=== PATIENT | female | born 2000 | race Caucasian/White ===

== ENCOUNTER 2024-12-02 17:29 | Emergency (ER) | payer OTHER, SELFPAY ==
--- OUTSIDE RECORDS SUMMARY | 2024-12-02 17:34 | XMS REPORT | Continuity of Care Document ---
Author Name Unknown Address [address] [place] [address] [facility] Address [address] [place] [address] Care Team Providers Care Nursing Technician Name Role Phone Endy Love Primary Care Physician + [phone] Brittany Nance RN Attending Clinician Unavailabl e GC_GCBZW_Kadiyala_S Attending Clinician Unavaila EMANUEL Forbes Attending Clinician Unavailable EbEmanuel Barba Attending Clinician [phone] Unknown, Attending Attending Clinician Unavailab Endy Machado Attending Clinician [phone] ENDY MCLAUGHLIN Attending Clinician Unavailable Nurse, Adc Fam Attending Clinician Unavailable YASMIN CRUZ Attending Clinician Unavailable BRENDA DELGADO Attending Clinician Unavailab BRENDA Saenz Attending Clinician Unavailab Tatiana Feldman MD Attending Clinician [phone] TATIANA DUNHAM Attending Clinician Unavailable Doctor Unassigned, [place] Attending Clinician U BRIANNE Figueredo Attending Clinician Unavailable Brianne Vaz MD Attending Clinician [phone] Avis Cotton Attending Clinician Raphael TERESAVictoria Attending Clinician GC_GCBZW_Kadiyala_S Admitting Clinician BRIANNE Gómez Admitting Clinician Unavailable Payers Payer Name Policy Type Policy Number Effective Date Expirati on Date Source [employer] - [employer] - [facility] [id number] [facility] [id number] 2020 00:00:00 [facility] [id number] [facility] [id number] 2015 00:00:00 Problems Condition Name Condition Details Condition Category Status Onset Date Resolution Date Last Treatment Date Treating Clinician Comments Source Pain in pelvis Pain in Pelvis Problem Active 12-24 00:00: 00 [facility] Excessive and frequent menstruati on Excessive and Frequent Menstruati on Problem Active 12-24 00:00: 00 [facility] No known active problems No known active problems Disease [facility] Allergies, Adverse Reactions, Alerts Allergy Name Allergy Type Status Severity Reaction(s) Onset Date Inactive Date Treating Clinician Comments Source NO KNOWN ALLERGIE S Drug Class Active [facility] Social History Social Habit Start Date Stop Date Quantity Comments Source [facility] Exposure to SARS-CoV-2 (event) 2023-02-09 00:00:00 2023-02-19 07:44:00 Not sure [facility] History of Social function 2022-12-12 00:00:00 2022-12-12 00:00:00 [facility] Tobacco use and exposure 2022-10-13 00:00:00 2022-10-13 00:00:00 Smokeless tobacco non-user [facility] Sex assigned at 2000 00:00:00 2000 00:00:00 [facility] Smoking Status Start Date Stop Date Source Never Smoker [facility] Tobacco smoking consumption unknown [facility] Medications Ordered Medication Name Filled Medication Name Start Date Stop Date Current Medication? Ordering Clinician Indication Dosage Frequency Signature (SIG) Comments Components Source fluconazole (DIFLUCAN) 150 mg tablet 2022-09 00:00: 00 07-29 05:59 :00 No [id number] 150mg Take 1 tablet by mouth every 72 (seventy-t wo) hours for 2 doses. [facility] One A Day Vitamin tablet 1 tablet every day by oral route. One A Day Vitamin tablet 1 tablet every day by oral route. 05-28 00:00: 00 No 1 Q1D One A Day Vitamin tablet 1 tablet every day by [facility] route. [facility]-ritonavir (PAXLOVID, EUA,) 300 mg (150 mg x 2)-100 mg tablet 02-20 00:00: 00 Yes [id number] 3{tbl} Take 3 tablets by mouth in the morning and 3 tablets in the evening. [facility] bromphenira mine-pseudo ephedrine-D M (BROMFED DM) 2-30-10 mg/5 mL syrup 02-19 00:00: 00 Yes [id number] 5mL Take 5 mL by mouth 4 (four) times daily as needed for Congestion /Allergies . [facility] methylPREDN ISolone (MEDROL, JENNA,) 4 mg tablets 02-19 00:00: 00 02-20 00:00 :00 No [id number] Take by mouth SEE-INSTRU CTIONS. follow package directions [facility] iopamidol (ISOVUE 370-500 mL) injection 80 mL - 03:00: 00 10-04 02:03 :00 No [id number] 80mL 80 mL, Intravenou s, ONCE, 1 dose, On Thu10/03/22 at 2100, Routine [facility] methylPREDN ISolone 4 mg tablets 10-03 00:00: 00 10-13 00:00 :00 No [id number] Take by mouth SEE-INSTRU CTIONS. follow package directions [facility] proMETHazin e (PHENERGAN) 25 mg in NaCl 0.9% (NS) 50 mL piggyback 05-13 22:15: 00 05-13 21:22 :00 No 25mg 25 mg, IV Piggyback, ONCE, 1 dose, 05/13/21 at 1715, 50 mL [facility] ondansetron (ZOFRAN (PF)) injection 4 mg 05-13 20:30: 00 05-13 19:33 :00 No 4mg 4 mg, Slow IV Push, ONCE, 1 dose, Thu05/13/21 at 1530, ESTUARDO [facility] NaCl 0.9% (NS) bolus infusion 1,000 mL 05-13 20:30: 00 05-13 21:21 :00 No 1000mL at 999 mL/hr, 1,000 mL, IV Piggyback, ONCE, 1 dose, Thu05/13/21 at 1530, STAT [facility] ondansetron (ZOFRAN ODT) 4 mg disintegrat ing tablet 05-13 00:00: 00 10-13 00:00 :00 No [id number] 4mg Take 1 tablet by mouth every 8 (eight) hours as needed for Nausea and Vomiting (N/V). [facility] proMETHazin e 25 mg tablet 05-13 00:00: 00 10-13 00:00 :00 No [id number] 25mg Take 1 tablet by mouth every 6 (six) hours as needed for Nausea and Vomiting (N/V). [facility] benzonatate 100 mg capsule 05-13 00:00: 00 10-13 00:00 :00 No [id number] 100mg Take 1 capsule by mouth 3 (three) times daily as needed for Cough. [facility] albuterol 90 mcg/actuati on inhaler 05-13 00:00: 00 10-13 00:00 :00 No [id number] 2{puff} Inhale 2 Puffs every 4 (four) hours as needed for Wheezing or Shortness of Breath. [facility] levofloxaci n 500 mg tablet TAKE 1 TABLET EVERY 24 HOURS BY ORAL ROUTE FOR 14 DAYS. levofloxaci n 500 mg tablet TAKE 1 TABLET EVERY 24 HOURS BY ORAL ROUTE FOR 14 DAYS. No levofloxac in 500 mg tablet TAKE 1 TABLET EVERY 24 HOURS BY ORAL ROUTE FOR 14 DAYS. [facility] metronidazo le 500 mg tablet TAKE 1 TABLET BY MOUTH EVERY 12 HOURS FOR 14 DAYS metronidazo le 500 mg tablet TAKE 1 TABLET BY MOUTH EVERY 12 HOURS FOR 14 DAYS No metronidaz ole 500 mg tablet TAKE 1 TABLET BY MOUTH EVERY 12 HOURS FOR 14 DAYS [facility] Immunizations Ordered Immunization Name Filled Immunization Name Date Status Comments Source HPV9 2023-03-03 00:00:00 Completed [facility] 2023-03-03 00:00:00 Completed [facility] 2022-12-12 00:00:00 Completed [facility] 2022-12-12 00:00:00 Completed [facility] 2022-12-12 00:00:00 Completed [facility] 2022-12-12 00:00:00 Completed [facility] 2022-12-12 00:00:00 Completed [facility] Flu Injectable MDCK Quadrivalent 2022-08-25 00:00:00 Completed [facility] Flu Injectable MDCK Quadrivalent 2022-08-25 00:00:00 Completed [facility] Flu Injectable MDCK Quadrivalent 2022-08-25 00:00:00 Completed [facility] Flu Injectable MDCK Quadrivalent 2022-08-25 00:00:00 Completed [facility] Flu Injectable MDCK Quadrivalent 2022-08-25 00:00:00 Completed SARS-COV-2 COVID-19 PFIZER VACCINE 2021-03-04 00:00:00 Completed [facility] SARS-COV-2 COVID-19 PFIZER VACCINE 2021-03-04 00:00:00 Completed [facility] SARS-COV-2 COVID-19 PFIZER VACCINE 2021-03-04 00:00:00 Completed [facility] SARS-COV-2 COVID-19 PFIZER VACCINE 2021-03-04 00:00:00 Completed [facility] SARS-COV-2 COVID-19 PFIZER VACCINE 2021-03-04 00:00:00 Completed [facility] SARS-COV-2 COVID-19 PFIZER VACCINE 2021-03-04 00:00:00 Completed SARS-COV-2 COVID-19 PFIZER VACCINE 2021-02-09 00:00:00 Completed [facility] SARS-COV-2 COVID-19 PFIZER VACCINE 2021-02-09 00:00:00 Completed [facility] SARS-COV-2 COVID-19 PFIZER VACCINE 2021-02-09 00:00:00 Completed [facility] SARS-COV-2 COVID-19 PFIZER VACCINE 2021-02-09 00:00:00 Completed [facility] SARS-COV-2 COVID-19 PFIZER VACCINE 2021-02-09 00:00:00 Completed [facility] SARS-COV-2 COVID-19 PFIZER VACCINE 2021-02-09 00:00:00 Completed [facility] TDAP 2021-01-15 00:00:00 Completed [facility] TDAP 2021-01-15 00:00:00 Completed [facility] TDAP 2021-01-15 00:00:00 Completed [facility] TDAP 2021-01-15 00:00:00 Completed [facility] TDAP 2021-01-15 00:00:00 Completed Influenza Virus Vaccine Quad IM, Preserv and ABX Free 6 MO-64 YRS 2020-12-26 00:00:00 Completed [facility] Influenza Virus Vaccine Quad IM, Preserv and ABX Free 6 MO-64 YRS 2020-12-26 00:00:00 Completed [facility] Influenza Virus Vaccine Quad IM, Preserv and ABX Free 6 MO-64 YRS 2020-12-26 00:00:00 Completed [facility] Influenza Virus Vaccine Quad IM, Preserv and ABX Free 6 MO-64 YRS 2020-12-26 00:00:00 Completed [facility] Influenza Virus Vaccine Quad IM, Preserv and ABX Free 6 MO-64 YRS (FLUCELVAX) 2020-12-26 00:00:00 Completed Influenza Virus Vaccine - Whole 2016-09-09 00:00:00 Completed [facility] Influenza Virus Vaccine - Whole 2016-09-09 00:00:00 Completed [facility] Influenza Virus Vaccine - Whole 2016-09-09 00:00:00 Completed [facility] Influenza Virus Vaccine - Whole 2016-09-09 00:00:00 Completed [facility] Influenza Virus Vaccine - Whole 2016-09-09 00:00:00 Completed Meningococcal Polysaccharide (groups A, C, Y and W-135) conjugate vaccine (MCV4P) 2015-09-10 00:00:00 Completed [facility] Meningococcal Polysaccharide (groups A, C, Y and W-135) conjugate vaccine (MCV4P) 2015-09-10 00:00:00 Completed [facility] Meningococcal Polysaccharide (groups A, C, Y and W-135) conjugate vaccine (MCV4P) 2015-09-10 00:00:00 Completed [facility] Meningococcal Polysaccharide (groups A, C, Y and W-135) conjugate vaccine (MCV4P) 2015-09-10 00:00:00 Completed [facility] Meningococcal Polysaccharide (groups A, C, Y and W-135) conjugate vaccine (MCV4P) 2015-09-10 00:00:00 Completed Influenza Virus Vaccine Nasal 2014-10-04 00:00:00 Completed [facility] Influenza Virus Vaccine Nasal 2014-10-04 00:00:00 Completed [facility] Influenza Virus Vaccine Nasal 2014-10-04 00:00:00 Completed [facility] Influenza Virus Vaccine Nasal 2014-10-04 00:00:00 Completed [facility] Influenza, Live, Trivalent, Intranasal (FLUMIST) 2014-10-04 00:00:00 Completed TDAP 2011-04-10 00:00:00 Completed [facility] Meningococcal Polysaccharide (groups A, C, Y and W-135) conjugate vaccine (MCV4P) 2011-04-10 00:00:00 Completed [facility] HEPATITIS A 2011-04-10 00:00:00 Completed [facility] TDAP 2011-04-10 00:00:00 Completed [facility] Meningococcal Polysaccharide (groups A, C, Y and W-135) conjugate vaccine (MCV4P) 2011-04-10 00:00:00 Completed [facility] HEPATITIS A 2011-04-10 00:00:00 Completed [facility] TDAP 2011-04-10 00:00:00 Completed [facility] Meningococcal Polysaccharide (groups A, C, Y and W-135) conjugate vaccine (MCV4P) 2011-04-10 00:00:00 Completed [facility] HEPATITIS A 2011-04-10 00:00:00 Completed [facility] TDAP 2011-04-10 00:00:00 Completed [facility] Meningococcal Polysaccharide (groups A, C, Y and W-135) conjugate vaccine (MCV4P) 2011-04-10 00:00:00 Completed [facility] HEPATITIS A 2011-04-10 00:00:00 Completed [facility] TDAP 2011-04-10 00:00:00 Completed Meningococcal Polysaccharide (groups A, C, Y and W-135) conjugate vaccine (MCV4P) 2011-04-10 00:00:00 Completed HEPATITIS A 2011-04-10 00:00:00 Completed IPV 2003-03-06 00:00:00 Completed [facility] MMR 2003-03-06 00:00:00 Completed [facility] DTaP, Unspecified Formulation 2003-03-06 00:00:00 Completed [facility] IPV 2003-03-06 00:00:00 Completed [facility] MMR 2003-03-06 00:00:00 Completed [facility] DTaP, Unspecified Formulation 2003-03-06 00:00:00 Completed [facility] IPV 2003-03-06 00:00:00 Completed [facility] MMR 2003-03-06 00:00:00 Completed [facility] DTaP, Unspecified Formulation 2003-03-06 00:00:00 Completed [facility] IPV 2003-03-06 00:00:00 Completed [facility] MMR 2003-03-06 00:00:00 Completed [facility] DTaP, Unspecified Formulation 2003-03-06 00:00:00 Completed [facility] IPV 2003-03-06 00:00:00 Completed MMR 2003-03-06 00:00:00 Completed DTaP, Unspecified Formulation 2003-03-06 00:00:00 Completed Varicella (varivax)(chicken pox) 2002-08-15 00:00:00 Completed [facility] IPV 2002-08-15 00:00:00 Completed [facility] MMR 2002-08-15 00:00:00 Completed [facility] HIB 4 Dose Schedule 2002-08-15 00:00:00 Completed [facility] Hep B, Adol or Pedi Dosage 2002-08-15 00:00:00 Completed [facility] DTaP, Unspecified Formulation 2002-08-15 00:00:00 Completed [facility] Varicella (varivax)(chicken pox) 2002-08-15 00:00:00 Completed [facility] IPV 2002-08-15 00:00:00 Completed [facility] MMR 2002-08-15 00:00:00 Completed [facility] HIB 4 Dose Schedule 2002-08-15 00:00:00 Completed [facility] Hep B, Adol or Pedi Dosage 2002-08-15 00:00:00 Completed [facility] DTaP, Unspecified Formulation 2002-08-15 00:00:00 Completed [facility] Varicella (varivax)(chicken pox) 2002-08-15 00:00:00 Completed [facility] IPV 2002-08-15 00:00:00 Completed [facility] MMR 2002-08-15 00:00:00 Completed [facility] HIB 4 Dose Schedule 2002-08-15 00:00:00 Completed [facility] Hep B, Adol or Pedi Dosage 2002-08-15 00:00:00 Completed [facility] DTaP, Unspecified Formulation 2002-08-15 00:00:00 Completed [facility] Varicella (varivax)(chicken pox) 2002-08-15 00:00:00 Completed [facility] IPV 2002-08-15 00:00:00 Completed [facility] MMR 2002-08-15 00:00:00 Completed [facility] HIB 4 Dose Schedule 2002-08-15 00:00:00 Completed [facility] Hep B, Adol or Pedi Dosage 2002-08-15 00:00:00 Completed [facility] DTaP, Unspecified Formulation 2002-08-15 00:00:00 Completed [facility] Varicella (varivax)(chicken pox) 2002-08-15 00:00:00 Completed IPV 2002-08-15 00:00:00 Completed MMR 2002-08-15 00:00:00 Completed HIB 4 Dose Schedule 2002-08-15 00:00:00 Completed Hep B, Adol or Pedi Dosage 2002-08-15 00:00:00 Completed DTaP, Unspecified Formulation 2002-08-15 00:00:00 Completed IPV 1999-04-12 00:00:00 Completed [facility] Hib-HbOC 1999-04-12 00:00:00 Completed [facility] DTaP, Unspecified Formulation 1999-04-12 00:00:00 Completed [facility] IPV 1999-04-12 00:00:00 Completed [facility] Hib-HbOC 1999-04-12 00:00:00 Completed [facility] DTaP, Unspecified Formulation 1999-04-12 00:00:00 Completed [facility] IPV 1999-04-12 00:00:00 Completed [facility] Hib-HbOC 1999-04-12 00:00:00 Completed [facility] DTaP, Unspecified Formulation 1999-04-12 00:00:00 Completed [facility] IPV 1999-04-12 00:00:00 Completed [facility] Hib-HbOC 1999-04-12 00:00:00 Completed [facility] DTaP, Unspecified Formulation 1999-04-12 00:00:00 Completed [facility] IPV 1999-04-12 00:00:00 Completed Hib-HbOC 1999-04-12 00:00:00 Completed DTaP, Unspecified Formulation 1999-04-12 00:00:00 Completed IPV 1999-02-13 00:00:00 Completed [facility] Hib-HbOC 1999-02-13 00:00:00 Completed [facility] Hep B, Adol or Pedi Dosage 1999-02-13 00:00:00 Completed [facility] DTaP, Unspecified Formulation 1999-02-13 00:00:00 Completed [facility] IPV 1999-02-13 00:00:00 Completed [facility] Hib-HbOC 1999-02-13 00:00:00 Completed [facility] Hep B, Adol or Pedi Dosage 1999-02-13 00:00:00 Completed [facility] DTaP, Unspecified Formulation 1999-02-13 00:00:00 Completed [facility] IPV 1999-02-13 00:00:00 Completed [facility] Hib-HbOC 1999-02-13 00:00:00 Completed [facility] Hep B, Adol or Pedi Dosage 1999-02-13 00:00:00 Completed [facility] DTaP, Unspecified Formulation 1999-02-13 00:00:00 Completed [facility] IPV 1999-02-13 00:00:00 Completed [facility] Hib-HbOC 1999-02-13 00:00:00 Completed [facility] Hep B, Adol or Pedi Dosage 1999-02-13 00:00:00 Completed [facility] DTaP, Unspecified Formulation 1999-02-13 00:00:00 Completed [facility] IPV 1999-02-13 00:00:00 Completed Hib-HbOC 1999-02-13 00:00:00 Completed Hep B, Adol or Pedi Dosage 1999-02-13 00:00:00 Completed DTaP, Unspecified Formulation 1999-02-13 00:00:00 Completed Hep B, Adol or Pedi Dosage 1998 00:00:00 Completed [facility] Hep B, Adol or Pedi Dosage 1998 00:00:00 Completed [facility] Hep B, Adol or Pedi Dosage 1998 00:00:00 Completed [facility] Hep B, Adol or Pedi Dosage 1998 00:00:00 Completed [facility] Hep B, Adol or Pedi Dosage 1998 00:00:00 Completed SARS-COV-2 COVID-19 PFIZER VACCINE Unknown Completed [facility] HPV9 Unknown Completed [facility] Varicella (varivax)(chicken pox) Unknown Completed [facility] TDAP Unknown Completed [facility] IPV Unknown Completed [facility] MMR Unknown Completed [facility] Meningococcal Polysaccharide (groups A, C, Y and W-135) conjugate vaccine (MCV4P) Unknown Completed [facility] Flu Injectable MDCK Quadrivalent Unknown Completed [facility] HIB 4 Dose Schedule Unknown Completed [facility] Hib-HbOC Unknown Completed [facility] Hep B, Adol or Pedi Dosage Unknown Completed [facility] HEPATITIS A Unknown Completed [facility] Influenza Virus Vaccine Nasal Unknown Completed [facility] Influenza Virus Vaccine - Whole Unknown Completed [facility] Influenza Virus Vaccine Quad IM, Preserv and ABX Free 6 MO-64 YRS (FLUCELVAX) Unknown Completed [facility] DTaP, Unspecified Formulation Unknown Completed [facility] HPV9 HPV9 Unknown [facility] Vital Name Observation Time Observation Value Comments Teetee lundberg BMI (Body Mass Index) 2023-11-10 00:00:00 27.7 kg/m2 [facility] BP Systolic 2023-11-10 00:00:00 114 mm[Hg] [facility] BP Diastolic 2023-11-10 00:00:00 62 mm[Hg] [facility] Height 2023-11-10 00:00:00 68.5 [in_i] [facility] Body Weight 2023-11-10 00:00:00 184.8 [lb_av] [facility] Systolic blood pressure 2023-07-24 15:25:00 138 mm[Hg] [facility] Diastolic blood pressure 2023-07-24 15:25:00 82 mm[Hg] [facility] Heart rate 2023-07-24 15:25:00 90 /min [facility] Body temperature 2023-07-24 15:25:00 36.89 [place] [facility] Respiratory rate 2023-07-24 15:25:00 16 /min [facility] Body height 2023-07-24 15:25:00 174 cm [facility] Body weight 2023-07-24 15:25:00 82.101 kg [facility] BMI 2023-07-24 15:25:00 27.12 kg/m2 [facility] Oxygen saturation in Arterial blood by Pulse oximetry 2023-07-24 15:25:00 98 /min [facility] Systolic blood pressure 2023-02-19 13:00:00 108 mm[Hg] [facility] Diastolic blood pressure 2023-02-19 13:00:00 74 mm[Hg] [facility] Heart rate 2023-02-19 13:00:00 113 /min [facility] Body temperature 2023-02-19 13:00:00 37.83 [place] [facility] Respiratory rate 2023-02-19 13:00:00 18 /min [facility] Body height 2023-02-19 13:00:00 172.7 [facility] weight 2023-02-19 13:00:00 78.744 kg [facility] BMI 2023-02-19 13:00:00 26.40 kg/m2 [facility] Oxygen saturation in Arterial blood by Pulse oximetry 2023-02-19 13:00:00 97 /min [facility] Systolic blood pressure 2022-10-13 20:42:00 108 mm[Hg] [facility] Diastolic blood pressure 2022-10-13 20:42:00 66 mm[Hg] [facility] Heart rate 2022-10-13 20:42:00 79 /min [facility] Body height 2022-10-13 20:42:00 174 cm [facility] Body weight 2022-10-13 20:42:00 80.377 kg [facility] BMI 2022-10-13 20:42:00 26.55 kg/m2 [facility] Oxygen saturation in Arterial blood by Pulse oximetry 2022-10-13 20:42:00 99 /min [facility] Body height 2022-10-04 00:59:00 172.7 cm [facility] Body weight 2022-10-04 00:59:00 79.788 kg [facility] BMI 2022-10-04 00:59:00 26.75 kg/m2 [facility] [facility] Oxygen saturation in Arterial blood by Pulse oximetry 2022-10-04 00:59:00 100 /min [facility] Systolic blood pressure 2022-10-04 00:59:00 129 mm[Hg] [facility] Diastolic blood pressure 2022-10-04 00:59:00 81 mm[Hg] [facility] Heart rate 2022-10-04 00:59:00 80 /min [facility] Body temperature 2022-10-04 00:59:00 37 [place] [facility] Respiratory rate 2022-10-04 00:59:00 16 /min [facility] Systolic blood pressure 2021-05-13 22:41:44 119 mm[Hg] [facility] Diastolic blood pressure 2021-05-13 22:41:44 68 mm[Hg] [facility] Heart rate 2021-05-13 22:41:44 91 /min [facility] Respiratory rate 2021-05-13 22:41:44 16 /min [facility] Oxygen saturation in Arterial blood by Pulse oximetry 2021-05-13 22:41:44 100 /min [facility] Body temperature 2021-05-13 18:59:00 37.39 [place] [facility] Body weight 2021-05-13 18:59:00 82.555 kg [facility] Procedures Procedure Date / Time Performed Performing Clinician Source Transvaginal Us Non-ob 2023-12-25 00:00:00 [facility] US, transvaginal 2023-12-25 00:00:00 [facility] US, transvaginal 2023-11-05 00:00:00 [facility] GARDASIL 9 (HPV 9V) VACCINE 2023-03-03 19:31:16 Endy Mclaughlin [facility] COVID-19 (MOLECULAR TESTING NUCLEIC ACID AMPLIFICATION) 2023-02-19 13:45:00 Endy Mclaughlin [facility] POCT GRP A STREP (MOLECULAR) 2023-02-19 13:00:00 Endy Mclaughlin [facility] POCT FLU A AND B (MOLECULAR) 2023-02-19 13:00:00 Endy Mclaughlin [facility] Extraction of Delevan Tooth 2023-01-19 00:00:00 [facility] GARDASIL 9 (HPV 9V) VACCINE 2022-12-12 21:50:33 Yasmin Cruz [facility] ASSIGNMENT OF BENEFITS 2022-10-13 20:39:00 Docto r Unassigned, [place] [facility] CT SOFT TISSUE NECK W CONTRAST 2022-10-04 02:06:13 Brianne Vaz [facility] POCT TEST 2022-10-04 01:25:00 Ebonie Vaz [facility] COMP. METABOLIC PANEL (70034) 2022-10-04 01:21:00 Brianne Vaz [facility] CBC WITH DIFF 2022-10-04 01:21:00 Brianne Vaz [facility] PROTHROMBIN TIME / INR 2022-10-04 01:21:00 Dario Vaz [facility] ACTIVATED PARTIAL THRMPLAS MAXWELL 2022-10-04 01:21:00 Brianne Vaz [facility] EBV-MONONUCLEOSIS SCREEN 2022-10-04 01:21:00 Brianne Vaz [facility] RAPID STREP SCREEN FOR GROUP A 2022-10-04 01:21:[address] [facility]ATMENT 2022-10-04 00:36:12 Doctor Unassigned, [place] [facility] QUANTIFERON-TB ASSAY 2022-08-27 20:30:00 Manuel Adams [facility] QFT TB2 MINUS NIL 2022-08-27 20:30:00 Ky longo [facility] POCT TEST 2021-05-13 19:56:00 Jessie Lim [facility] URINALYSIS 2021-05-13 19:55:00 Raphael [facility] XR CHEST 1 VW 2021-05-13 19:37:44 Victoria Lim [facility] LIPASE 2021-05-13 19:33:00 [facility] HE[facility] FUNCTION [facility] (75460) (ALB,T.PRO,BILI T,BU/BC,ALT,AST,ALK PHOS) 2021-05-13 19:33:[address] [facility] BASIC METABOLIC PANEL (NA, K, CL, CO2, GLUCOSE, BUN, CREATININE, CA) 2021-05-13 19:33:00 [facility] 2021-05-13 19:33:00 Victoria Lim [facility] COVID-19 (ID NOW RAPID TESTING) 2021-05-13 19:33:00 Lmi, [place] [facility] NOTICE OF PRIVACY PRACTICES 2021-05-13 18:48:49 Doctor Unassigned, [place] [facility] Encounters Start Date/Time End Date/Time Encounter Type Admission Type Attending [facility] Care Facility Care Department Encounter ID Source 2023-02-19 00:00:00 2024-11-05 02:41:02 Orders Only Brittany Nance Kelley L [facility] [id number] 350.1.13.10 4.2.7.2.686 [id number] [facility] 2024-01-01 00:00:00 2024-01-01 00:00:00 NESSA Wong: [address], [place] [phone] , Ph. GC_GCBZW_Ka diyala_S [facility] - GC_GCBZW_Harriet ren [place]* [id number] [facility] 2023-12-25 00:00:00 2023-12-25 00:00:00 Ellen Olvera MD: [address], [place] [phone] , Ph. GC_GCBZW_Ka diyala_S [facility] - GC_GCBZW_Harriet rne [place]* [id number] [facility] 2023-12-02 00:00:00 2023-12-02 00:00:00 Outpatient GC_GCBZW_Ka diyala_S [facility] [id number] [facility] 2023-11-10 00:00:00 2023-11-10 00:00:00 Outpatient GC_GCBZW_Ka diyala_S [facility] [id number] [facility] 2023-11-10 00:00:00 2023-11-10 00:00:00 NESSA Wong: [address], [address], [place] [phone] , Ph. [facility] - GC_GCBZW_Harriet [place]* [id number] [facility] 2023-11-05 00:00:00 2023-11-05 00:00:00 Outpatient GC_GCBZW_Ka diyala_S PRIV PRIV [id number] [facility] 2023-11-05 00:00:00 2023-11-05 00:00:00 Ellen Olvera MD: [address], [place] [address] , Ph. [facility] - GC_GCBZW_[place]riet [place]* [id number] [facility] 2023-11-02 00:00:00 2023-11-02 00:00:00 Outpatient GC_GCBZW_Ka diyala_S PRIV PRIV [id number] [facility] 2023-11-02 00:00:00 2023-11-02 00:00:00 NESSA Wong: [address], [place] [address] , Ph. [facility] - GC_GCBZW_Harriet [place]* [id number] [facility] 2023-08-27 00:00:00 2023-08-27 00:00:00 Outpatient GC_GCBZW_Ka diyala_S PRIV PRIV [id number] [facility] 2023-08-27 00:00:00 2023-08-27 00:00:00 Outpatient GC_GCBZW_Ka diyala_S PRIV PRIV [id number] [facility] 2023-08-06 00:00:00 2023-08-06 00:00:00 Outpatient GC_GCBZW_Ka diyala_S PRIV PRIV [id number] [facility] 2023-07-30 00:00:00 2023-07-30 00:00:00 Outpatient GC_GCBZW_Ka diyala_S PRIV PRIV [id number] [facility] 2023-07-25 00:00:00 2023-07-25 00:00:00 Outpatient GC_GCBZW_Ka diyala_S PRIV PRIV [id number] [facility] 2023-07-25 00:00:00 2023-07-25 00:00:00 Outpatient GC_GCBZW_Ka diyala_S PRIV PRIV [id number] [facility] 2023-07-24 10:20:00 2023-07-24 10:42:02 Outpatient R CORONAYAMILEMANUEL Gomez [facility] [id number] [facility] 2023-07-24 10:20:00 2023-07-24 10:40:00 Urgent Care Chilo Emanuel Unknown, Attending [facility] [id number] 350.1.13.10 4.2.7.2.686 [id number] [facility] 2023-07-22 00:00:00 2023-07-22 00:00:00 Outpatient GC_GCBZW_Ka diyala_S PRIV PRIV [id number] [facility] 2023-07-14 00:00:00 2023-07-14 00:00:00 Outpatient GC_GCBZW_Ka diyala_S PRIV PRIV [id number] [facility] 2023-03-06 00:00:00 2023-03-06 00:00:00 Telephone Arcadio Mclaughlinssica [facility] .2.840.114 350.1.13.10 4.2.7.2.686 [id number] [facility] 2023-03-03 09:40:00 2023-03-03 12:05:32 Outpatient R ARCADIO MCLAUGHLINSSICA [facility] [id number] [facility] 2023-03-03 09:40:00 2023-03-03 12:05:32 Nurse Visit Nurse, [facility] Monico Jamin [place] [id number] 350.1.13.10 4.2.7.2.686 [id number] [facility] 2023-02-19 08:30:00 2023-02-19 08:41:47 Outpatient R ENDY MCLAUGHLIN [facility] [id number] [facility] 2023-02-19 08:30:00 2023-02-19 08:41:47 [facility] 1.840.114 350.1.13.10 4.2.7.2.686 [id number] [facility] 2023-02-18 14:20:00 2023-02-18 14:20:00 Outpatient R [facility] [id number] [facility] 2023-02-11 14:20:00 2023-02-11 14:20:00 Outpatient R [facility] [id number] [facility] 2023-01-09 14:20:00 2023-01-09 14:20:00 Outpatient R JINACICIYASMIN ANNE [facility] [id number] [facility] 2022-12-12 10:00:00 2022-12-12 15:41:42 Outpatient R BRENDA DELGADO [facility] [id number] [facility] 2022-12-12 10:00:00 2022-12-12 15:41:42 Nurse Visit Nurse, Leslye Jimkaileeelena [facility] 1..840.114 350.1.13.10 4.2.7.2.686 [id number] [facility] 2022-10-13 14:45:00 2022-10-13 15:00:00 Office Visit Tatiana Dunham [facility] 1.840.114 350.1.13.10 4.2.7.2.686 [id number] [facility] 2022-10-13 14:45:00 2022-10-13 14:45:00 Outpatient TATIANA VELEZ SEPEHR [facility] [id number] [facility] 2022-10-13 00:00:00 2022-10-13 00:00:00 Orders Only Doctor Unassigned, [place] [facility] 1.2.840.114 350.1.13.10 4.2.7.2.686 [id number] [facility] 2022-10-03 19:02:00 2022-10-03 21:20:00 Emergency X BRIANNE VAZ [facility] ERT [id number] [facility] 2022-10-03 19:02:00 2022-10-03 21:20:00 Emergency Brianne Vaz [facility] 1.2.840.114 350.1.13.10 4.2.7.2.686 [id number] [facility] 2022-08-27 14:45:00 2022-08-27 23:59:00 Hospital Encounter JosQuentin volodymyr Avis [facility] 1.2.840.114 350.1.13.10 4.2.7.2.686 [id number] [facility] 2021-05-13 14:00:00 2021-05-13 17:43:00 Emergency Victoria Lim [facility] 1.2.840.114 350.1.13.10 4.2.7.2.686 [id number] [facility] 2021-05-13 13:49:00 2021-05-13 13:49:00 Emergency X [facility] ERT [id number] [facility] Results Test Description Test Time Test Comments Results Result Co mments Source [facility] [Units/volume] in Serum or Vulstn9722-40-80 00:00:00* Test Item Value Reference Range Interpretation Comme nts TSH (test code = TSH) 1.410 uIU/mL 0.178-4.530 [facility] MedicalChoriogonadotropin.beta subunit [Units/volume] in Serum or Plasma 2023-11-03 00:00:00* Test Item Value Reference Range Interpretation Comme nts HCG (test code = HCG) < 5 [facility], [id number] 09:40:48* Test Item Value Reference Range Interpretation Comme nts HCG (test code = HCG) [facility] 13:36:00* Test Item Value Reference Range Interpretation Comme nts POCT INFLUENZA A (test code = 3840) negative Negative - Negative POCT INFLUENZA B (test code = 3841) negative Negative - Negative Lab Interpretation (test cod e = 32266-3) Normal [facility] FLU A AND B (MOLECULAR)2023-02-19 13:36:00* Test Item Value Reference Range Interpretation Comme nts POCT INFLUENZA A (test code = 3840) negative Negative - Negative POCT INFLUENZA B (test code = 3841) negative Negative - Negative Lab Interpretation (test cod e = 45181-5) Normal [facility] FLU A AND B (MOLECULAR)2023-02-19 13:36:00* Test Item Value Reference Range Interpretation Comme nts POCT INFLUENZA A (test code = 3840) negative Negative - Negative POCT INFLUENZA B (test code = 3841) negative Negative - Negative Lab Interpretation (test cod e = 95591-7) Normal [facility] GRP A STREP (MOLECULAR)2023-02-19 13:34:00* Test Item Value Reference Range Interpretation Comme nts POCT GP A STREP (test code = 92835-1) negative Negative - Negative Lab Interpretation (test cod e = 37120-8) Normal [facility] GRP A STREP (MOLECULAR)2023-02-19 13:34:00* Test Item Value Reference Range Interpretation Comme nts POCT GP A STREP (test code = 40031-3) negative Negative - Negative Lab Interpretation (test cod e = 30316-5) Normal [facility] GRP A STREP (MOLECULAR)2023-02-19 13:34:00* Test Item Value Reference Range Interpretation Comme [facility] POCT GP A STREP (test code = 71533-5) negative Negative - Negative Lab Interpretation (test cod e = 12596-7) Normal [facility] [id number] 02:06:49* Test Item Value Reference Range Interpretation Comme [facility] EBV Mononucleosis Screen (te st code = 3955055811) Negative Negative Lab Interpretation (test cod e = 80292-1) Normal [facility] THRMPLAS [id number] 02:00:23* Test Item Value Reference Range Interpretation Comme [facility] APTT Patient (test code = 3173-2) See_Comment [Automated message] The system which generated this result transmitted reference range: 23 - 38 Seconds. The reference range was not used to interpret this result as normal/abnormal. OTF (test code = OTF) The [facility] patient population mean normal value for aPTT is 30 seconds. Lab Interpretation (test code = 58416-7) Normal [facility] Children[facility] TIME / [id number] 01:58:16* Test Item Value Reference Range Interpretation Comme [facility] PROTIME PATIENT (test code = 5964-2) See_Comment [Automated messa ge] The system which generated this result transmitted reference range: 12.0 - 14.7 Seconds. The reference range was not used to interpret this result as normal/abnormal. INR (test code = 6301-6) Normal INR <1.1; Warfarin Therapeutic range 2.0 to 3.0 or 2.5 to 3.5, depending upon the indications. Lab Interpretation (test code = 17682-4) Normal [facility] METABOLIC PANEL (18255)2022-10-04 01:55:40* Test Item Value Reference Range Interpretation Comme [facility] NA (test code = 1055977850) 138 mmol/L 135-145 K (test code = 0306239883) 4.0 mmol/L 3.5-5.0 CL (test code = 6383321655) 103 mmol/L 98-108 CO2 TOTAL (test code = 4504284199) 28 mmol/L 23-31 AGAP (test code = 2772769572) 2-16 BUN (test code = 5072118995) 14 mg/dL 7-23 GLUCOSE (test code = 2731627442) 95 mg/dL 70-110 CREATININE (test code = 0576632839) 0.76 mg/dL 0.50-1.04 TOTAL BILI (test code = 9246403537) 0.3 mg/dL 0.1-1.1 CALCIUM (test code = 0149810252) 9.0 mg/dL 8.6-10.6 T PROTEIN (test code = 8551286612) 7.6 g/dL 6.3-8.2 ALBUMIN (test code = 1647611277) 4.6 g/dL 3.5-5.0 ALK PHOS (test code = 9568051697) 72 U/L 34-122 ALTv (test code = 1742-6) 61 U/L 5-35 H AST(SGOT) (test code = 8962446944) 53 U/L 13-40 H eGFR (test code = 1050117912) mL/min/1.73m2 OTF (test code = OTF) Association of Glomerular Filtration Rate (GFR) and Staging of Kidney Disease* + --+ --+ ------+| GFR (mL/min/1.73 m2) ?| With Kidney Damage ?| ?Without Kidney Damage+ --------+ --------+ +| ?>90 ?| ?Stage one ?| ? Normal ?+ ---+ ---+ -------+| ?60-89 ?| ?Stage two ?| ? Decreased GFR ? + --+ --+ ------+| ?30-59 ?| ?Stage three ?| ? Stage three ? + --+ --+ ------+| ?15-29 ?| ?Stage four ? | ? Stage four ?+ ---+ ---+ -------+| ?<15 (or dialysis) ? ?| ?Stage five ? | ? Stage five ?+ ---+ ---+ -------+ *Each stage assumes the associated GFR level has been in effect for at least three months. ?Stages 1 to 5, with or without kidney disease, indicate chronic kidney disease. Notes: Determination of stages one and two (with eGFR >59mL/min/1.73 m2) requires estimation of kidney damage for at least three months as defined by structural or functional abnormalities of the kidney, manifested by either:Pathological abnormalities or Markers of kidney damage (including abnormalities in the composition of the blood or urine or abnormalities in imaging tests). Lab Interpretation (test code = 30723-0) Abnormal [facility] WITH [id number] 01:49:38* Test Item Value Reference Range Interpretation Comme nts WBC (test code = 6690-2) See_Comment [Automated messa ge] The system which generated this result transmitted reference range: 4.30 - 11.10 10*3/?L. The reference range was not used to interpret this result as normal/abnormal. RBC (test code = 789-8) See_Comment [Automated messa ge] The system which generated this result transmitted reference range: 3.93 - 5.25 10*6/?L. The reference range was not used to interpret this result as normal/abnormal. HGB (test code = 718-7) 11.7 g/dL 11.6-15.0 HCT (test code = 4544-3) 37.3 % 35.7-45.2 MCV (test code = 787-2) 80.4 fL 80.6-95.5 L MCH (test code = 785-6) 25.2 pg 25.9-32.8 L MCHC (test code = 786-4) 31.4 g/dL 31.6-35.1 L RDW-SD (test code = 88359-2) 37.5 fL 39.0-49.9 L RDW-CV (test code = 788-0) 13.0 % 12.0-15.5 PLT (test code = 777-3) See_Comment [Automated messa ge] The system which generated this result transmitted reference range: 166 - 358 10*3/?L. The reference range was not used to interpret this result as normal/abnormal. MPV (test code = 82045-0) 11.1 fL 9.5-12.9 NRBC/100 WBC (test code = 3455941085) See_Comment [Automated Medikly ssage] The system which generated this result transmitted reference range: 0.0 - 10.0 /100 WBCs. The reference range was not used to interpret this result as normal/abnormal. NRBC x10^3 (test code = 1279810818) See_Comment [Automated messa ge] The system which generated this result transmitted reference range: 10*3/?L. The reference range was not used to interpret this result as normal/abnormal. GRAN MAT (NEUT) % (test code = 770-8) 48.7 % IMM GRAN % (test code = 8159348562) 0.20 % LYMPH % (test code = 736-9) 42.9 % MONO % (test code = 5905-5) 6.7 % EOS % (test code = 713-8) 1.1 % BASO % (test code = 706-2) 0.4 % GRAN MAT x10^3(ANC) (test code = 6646880509) 4.11 10*3/uL 1.88-7.09 IMM GRAN x10^3 (test code = 2586330740) 0.00-0.06 LYMPH x10^3 (test code = 731-0) 3.61 10*3/uL 1.32-3.29 H MONO x10^3 (test code = 742-7) 0.56 10*3/uL 0.33-0.92 EOS x10^3 (test code = 711-2) 0.09 10*3/uL 0.03-0.39 BASO x10^3 (test code = 704-7) 0.03 10*3/uL 0.01-0.07 Lab Interpretation (test code = 04363-8) Abnormal [facility] [id number] 01:25:00* Test Item Value Reference Range Interpretation Comme nts POCT PREG (test code = 1605) negative Lab Interpretation (test cod e = 68052-0) Normal [facility]2021-08-23 20:15:19* Test Item Value Reference Range Interpretation Comme nts APPEARANCE (test code = 1006855233) Hazy Clear A COLOR (test code = 9284240683) Yellow Yellow PH (test code = 4315599043) 4.8-8.0 SP GRAVITY (test code = 0226984488) 1.003-1.030 GLU U QUAL (test code = 3444454139) Normal Normal BLOOD (test code = 1401918675) Negative Negative KETONES (test code = 4432358094) Negative Negative PROTEIN (test code = 2887-8) Negative Negative UROBILIN (test code = 4977405936) Normal Normal BILIRUBIN (test code = 6013403148) Negative Negative NITRITE (test code = 5932326485) Negative Negative LEUK HAROON (test code = 6932796302) Negative Negative RBC/HPF (test code = 0884642253) See_Comment [Automated messa ge] The system which generated this result transmitted reference range: 0 - 3 HPF. The reference range was not used to interpret this result as normal/abnormal. WBC/HPF (test code = 3492895796) See_Comment [Automated messa ge] The system which generated this result transmitted reference range: 0 - 5 HPF. The reference range was not used to interpret this result as normal/abnormal. BACTERIA (test code = 8158423753) Negative Negative MUCOUS (test code = 3779787431) Marked Negative LPF A SQ EPITH (test code = 2186185287) HPF HYAL CAST (test code = 5269675206) See_Comment H [Automated messa ge] The system which generated this result transmitted reference range: <=2 LPF. The reference range was not used to interpret this result as normal/abnormal. Lab Interpretation (test code = 77024-5) Abnormal [facility] (ID NOW RAPID TESTING)2021-05-13 20:02:28* Test Item Value Reference Range Interpretation Comme nts SARS-CoV-2 Rapid ID NOW (test code = 72075-2) Positive Not Detected A OTF (test code = OTF) ID NOW COVID-19 As say is an isothermal nucleic acid amplification test intended for the qualitative detection of nucleic acid from SARS-CoV-2 viral RNA in nasopharyngeal (MACHINE STAPLER) specimens. It is used under Emergency Use Authorization (EUA) by FDA. The limit of detection (LOD) of the assay is 125 Genome Equivalents/mL. A positive result is indicative of the presence of SARS-CoV-2 RNA. ?Clinical correlation with patient history and other diagnostic information is necessary to determine patient infection status. A negative (Not Detected) result does not preclude SARS-CoV-2 infection. In patients with clinical symptoms and other tests that are consistent with SARS-CoV-2 infection, negative results should be treated as presumptive negative and a new specimen should be tested with alternative PCR molecular test. Invalid: Please collect a new specimen for repeat patient testing if clinically indicated. Lab Interpretation (test code = 88681-6) Abnormal [facility] (NA, K, CL, CO2, GLUCOSE, BUN, CREATININE, CA)2021-05-13 19:58:46* Test Item Value Reference Range Interpretation Comme nts NA (test code = 4552819607) 138 mmol/L 135-145 K (test code = 7543109086) 3.4 mmol/L 3.5-5.0 L CL (test code = 0203081301) 104 mmol/L 98-108 CO2 TOTAL (test code = 4414822204) 23 mmol/L 23-31 AGAP (test code = 4917567686) 2-16 BUN (test code = 7021473720) 12 mg/dL 7-23 GLUCOSE (test code = 9527725177) 120 mg/dL 70-110 H CREATININE (test code = 1180688805) 0.65 mg/dL 0.50-1.04 CALCIUM (test code = 0152203860) 9.6 mg/dL 8.6-10.6 eGFR (test code = 3582247392) mL/min/1.73m2 OTF (test code = OTF) Association of Glomerular Filtration Rate (GFR) and Staging of Kidney Disease* + --+ --+ ------+| GFR (mL/min/1.73 m2) ?| With Kidney Damage ?| ?Without Kidney Damage+ --------+ --------+ +| ?>90 ?| ?Stage one ?| ? Normal ?+ ---+ ---+ -------+| ?60-89 ?| ?Stage two ?| ? Decreased GFR ? + --+ --+ ------+| ?30-59 ?| ?Stage three ?| ? Stage three ? + --+ --+ ------+| ?15-29 ?| ?Stage four ? | ? Stage four ?+ ---+ ---+ -------+| ?<15 (or dialysis) ? ?| ?Stage five ? | ? Stage five ?+ ---+ ---+ -------+ *Each stage assumes the associated GFR level has been in effect for at least three months. ?Stages 1 to 5, with or without kidney disease, indicate chronic kidney disease. Notes: Determination of stages one and two (with eGFR >59mL/min/1.73 m2) requires estimation of kidney damage for at least three months as defined by structural or functional abnormalities of the kidney, manifested by either:Pathological abnormalities or Markers of kidney damage (including abnormalities in the composition of the blood or urine or abnormalities in imaging tests). Lab Interpretation (test code = 80668-0) Abnormal [facility] PAN[facility] (53544) (ALB,T.PRO,BILI T,BU/BC,ALT,AST,ALK PHOS)2021-05-13 19:58:46* Test Item Value Reference Range Interpretation Comme nts TOTAL BILI (test code = 2429917074) 0.4 mg/dL 0.1-1.1 BILI UNCON (test code = 8607357342) 0.3 mg/dL 0.1-1.1 BILI CONJ (test code = 8946088068) 0.0 mg/dL 0.0-0.3 T PROTEIN (test code = 7037509768) 8.2 g/dL 6.3-8.2 ALBUMIN (test code = 2866741642) 4.7 g/dL 3.5-5.0 ALK PHOS (test code = 9137549328) 75 U/L 34-122 ALTv (test code = 1742-6) 17 U/L 5-35 AST(SGOT) (test code = [id number]) 23 U/L 13-40 Lab Interpretation (test cod e = 21930-9) [facility]58:30* Test Item Value Reference Range Interpretation Comme nts LIPASE (test code = 6240645082) 60 U/L 0-220 Lab Interpretation (test cod e = 81665-8) [facility] [id number] 19:56:00* Test Item Value Reference Range Interpretation Comme nts POCT PREG (test code = 1605) negative On board controls acceptable with C Line (test code = 3574) present Lab Interpretation (test cod e = 37537-1) [facility] 1 [id number] 19:54:25Findings that may be seen with bronchial hyperreactivity-nonspecificbronchitis. Otherwise no signs of acute cardiopulmonary process. Mary Schmid MD., have reviewed this study and agree with theabove report.EXAM: XR CHEST 1 VW COMPARISON: None. HISTORY: 20-year-old female with COVID-19 infection. FINDINGS: Lungs: Relatively large lung volumes. Mild peribronchial cuffing. Nodefinite foc al opacities. Heart/Mediastinum: The cardiac silhouette appears normal accounting fortechnique. Bones and soft tissues: No focal osseous lesions or acute osseous findingsare detected. [facility], Radiant Results Inft User - 05/13/2021 2:55 PM CDT EXAM: XR CHEST 1 VWCOMPARISON: None.HISTORY: 20-year-old female with COVID-19 infection.FINDINGS:Lungs: Relatively large lung volumes. Mild peribronchial cuffing. Nodefinite focal opacities.Heart/Mediastinum: The cardiac silhouette appears normal accounting fortechnique.Bones and soft tissues: No focal osseous lesions or acute osseous findingsare detected.IMPRESSIONFindings that may be seen withbronchial hyperreactivity-nonspecificbronchitis. Otherwise no signs of acute cardiopulmonary process.IMary MD., have reviewed this study and agree with theabove report.[facility] WITH [id number] 19:49:47* Test Item Value Reference Range Interpretation Comme nts WBC (test code = 6690-2) See_Comment [Automated [employer]] The system which generated this result transmitted reference range: 4.30 - 11.10 10*3/?L. The reference range was not used to interpret this result as normal/abnormal. RBC (test code = 789-8) See_Comment [Automated [employer]] The system which generated this result transmitted reference range: 3.93 - 5.25 10*6/?L. The reference range was not used to interpret this result as normal/abnormal. HGB (test code = 718-7) 12.1 g/dL 11.6-15.0 HCT (test code = 4544-3) 38.2 % 35.7-45.2 MCV (test code = 787-2) 79.7 fL 80.6-95.5 L MCH (test code = 785-6) 25.3 pg 25.9-32.8 L MCHC (test code = 786-4) 31.7 g/dL 31.6-35.1 RDW-SD (test code = 54615-6) 38.8 fL 39.0-49.9 L RDW-CV (test code = 788-0) 13.3 % 12.0-15.5 PLT (test code = 777-3) See_Comment [Automated [employer] ge] The system which generated this result transmitted reference range: 166 - 358 10*3/?L. The reference range was not used to interpret this result as normal/abnormal. MPV (test code = 85546-4) 10.6 fL 9.5-12.9 NRBC/100 WBC (test code = 3253419764) See_Comment [Automated [employer]] The system which generated this result transmitted reference range: 0.0 - 10.0 /100 WBCs. The reference range was not used to interpret this result as normal/abnormal. NRBC x10^3 (test code = 7540453078) <0.01 See_Comment [Automated [employer] ge] The system which generated this result transmitted reference range: 10*3/?L. The reference range was not used to interpret this result as normal/abnormal. GRAN MAT (NEUT) % (test code = 770-8) 78.2 % IMM GRAN % (test code = 5777951900) 0.30 % LYMPH % (test code = 736-9) 17.4 % MONO % (test code = 5905-5) 3.9 % EOS % (test code = 713-8) 0.1 % BASO % (test code = 706-2) 0.1 % GRAN MAT x10^3(ANC) (test code = 7108778311) 6.09 10*3/uL 1.88-7.09 IMM GRAN x10^3 (test code = 4323862417) <0.03 0.00-0.06 LYMPH x10^3 (test code = 731-0) 1.35 10*3/uL 1.32-3.29 MONO x10^3 (test code = 742-7) 0.30 10*3/uL 0.33-0.92 L EOS x10^3 (test code = 711-2) <0.03 0.03-0.39 L BASO x10^3 (test code = 704-7) <0.03 0.01-0.07 Lab Interpretation (test code = 37350-5) Abnormal [facility]"
[2024-12-02 18:07] LABS: Absolute Eosinophils 0.1 K/uL (0-0.5); Absolute Lymphocytes (CBC) 2.8 K/uL (0.7-4.9); Absolute Monocytes 0.6 K/uL (0.1-1.3); Absolute Neutrophil 4.6 K/uL (1.8-8.0); Basophils % 0.3 % (0-1.3); Eosinophils % 0.7 % (0-4.4); Hematocrit 35.7 % (36.0-45.0); Hemoglobin 11.8 g/dL (12.0-15.0); Lymphocytes % 34.6 % (15.3-44.8); MCH 26.5 pg (27.0-35.0); MCV 80.4 fL (80-100); MPV 8.6 fL (7.6-11.3); Monocytes % 6.9 % (3.3-12.3); Neutrophils % 57.5 % (41.7-73.7); Platelets 234 thou/uL (152-406); RBC Red Blood Cell Count 4.44 M/uL (3.86-4.86); Red Cell Distribution Width 13.6 % (12.1-15.2); Specific Gravity > 1.030 (1.005-1.030)
[2024-12-02 18:21] LABS: Anion Gap 7.7 mEq/L (5.0-15.0); Potassium 3.7 mEq/L (3.5-5.1)
[2024-12-02] MEDS ORDERED: NA CHLORIDE 0.9% 1,000 ML ONE (19:26)
[2024-12-02] MEDS ORDERED: ACETAMINOPHEN 500 MG TAB ONE (19:26)
--- NOTE | 2024-12-02 20:40 | RAD REPORT ---
EXAMINATION: US Transvaginal OB COMPARISON: None. HISTORY: ABD PAIN TECHNIQUE: Real-time ultrasound was performed through the pelvis. A transvaginal scan was performed t o better visualize the intrauterine contents and adnexa. FINDINGS: LMP: 10/31/2024 There is a single intrauterine with a small gestational sac measuring 2.5 mm in mean diamet er, corresponding to sonographic age of 4 weeks, 6 days. No pole or cardiac pulsations identified. Small crescentic subchorionic hemorrhage posteriorly measuring 2.5 mm in thickness. Both ovaries are visualized and appear unremarkable, with a dominant 1.6 cm cystic lesion within the left ovary, may represent a corpus luteum. There is no free fluid in the cul-de-sac. IMPRESSION: Single intrauterine , with a composite sonographic age of 4 weeks, 6 days based on gestation al sac mean diameter. No pole or cardiac pulsations identified, which could be related to very early gestational age. Short-term follow-up ultrasound and beta hCG trending are recommended to establish viability..
--- NOTE | 2024-12-02 20:46 | ER ---
Nurse's Notes [facility] Name: Glory Gomes Age: 24 yrs Sex: Female : 2000 Arrival Date: 12/02/2024 Time: 17:29 Bed 14 Private MD: Diagnosis: Lower abdominal pain, unspecified;Other specified related conditions, first trimester Presentation: 12/02 17:43 Chief complaint: Patient states: First - recently missed period. Believes to ld1 be 4 weeks . C/O lower ABD cramping, no bleeding. Coronavirus screen: At this time, the client does not indicate any symptoms associated with coronavirus-19. Ebola Screen: No symptoms or risks identified at this time. Initial Sepsis Screen: Does the patient meet any 2 criteria? No. Patient's initial sepsis screen is negative. Does the patient have a suspected source of infection? No. Patient's initial sepsis screen is negative. Risk Assessment: Do you want to hurt yourself or someone else? Patient reports no desire to harm self or others. Onset of symptoms was December 02, 2024. 17:43 Method Of Arrival: Ambulatory ld1 17:43 Acuity: KATHY 3 ld1 Triage Assessment: 17:43 General: Appears in no apparent distress. comfortable, Behavior is calm, cooperative, ld1 appropriate for age. Pain: Complains of pain in suprapubic area, right lower quadrant and left lower quadrant Pain does not radiate. Pain currently is 7 out of 10 on a pain scale. Quality of pain is described as throbbing, Pain began suddenly, Is continuous. EENT: No signs and/or symptoms were reported regarding the EENT system. Neuro: Level of Consciousness is awake, alert, obeys commands, Oriented to person, place, time, situation. Cardiovascular: Capillary refill < 3 seconds Patient's skin is warm and dry. Respiratory: Airway is patent Respiratory effort is even, unlabored. GI: Abdomen is round non-distended, Reports lower abdominal pain. : No signs and/or symptoms were reported regarding the genitourinary system. Derm: No signs and/or symptoms reported regarding the dermatologic system. Musculoskeletal: No signs and/or symptoms reported regarding the musculoskeletal system. 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 - Infectious Disease History:: Denies. - Social history:: Smoking status: Patient denies any tobacco usage or history of. Screenin:03 [facility] ED Fall Risk Assessment (Adult) History of falling in the last 3 months, kj2 including since admission No falls in past 3 months (0 pts) Confusion or Disorientation No (0 pts) Intoxicated or Sedated No (0 pts) Impaired Gait No (0 pts) Mobility Assist Device Used No (0 pt) Altered Elimination No (0 pt) Score/Fall Risk Level 0 - 2 = Low Risk Maintained a safe environment, Hourly rounding (assess needs \T\ fall precautionary measures) done. Abuse screen: Denies threats or abuse. Denies injuries from another. Nutritional screening: No deficits noted. Tuberculosis screening: No symptoms or risk factors identified. Assessment: 19:01 General: Appears in no apparent distress. Behavior is calm, cooperative. Pain: kj2 Complains of pain in abdomen and left lower quadrant and right lower quadrant and suprapubic area Pain currently is 4 out of 10 on a pain scale. Neuro: Level of Consciousness is awake, alert, obeys commands, Oriented to person, place, time, situation. Cardiovascular: Patient's skin is warm and dry. Respiratory: Airway is patent Respiratory effort is even, unlabored. : No signs and/or symptoms were reported regarding the genitourinary system. 20:02 Reassessment: Patient appears in no apparent distress at this time. Patient and/or kj2 family updated on plan of care and expected duration. Pain level reassessed. Patient is alert, oriented x 3, equal unlabored respirations, skin warm/dry/pink. 21:22 GI: Bowel sounds present X 4 quads. Abd is non tender X 4 quads. kj2 21:23 Reassessment: Patient appears in no apparent distress at this time. Patient and/or kj2 family updated on plan of care and expected duration. Pain level reassessed. Patient is alert, oriented x 3, equal unlabored respirations, skin warm/dry/pink. Vital Signs: 17:43 BP 129 / 70; Pulse 88; Resp 18; Temp 98.2(TE); Pulse Ox 99% on R/A; Weight 79.83 kg; ld1 Height 5 ft. 8 in. ; Pain 6/10; 19:01 BP 123 / 66; Pulse 86; Resp 20; Pulse Ox 100% on R/A; kj2 20:02 BP 119 / 69; Pulse 86; Resp 20; Pulse Ox 100% ; kj2 21:23 BP 121 / 68; Pulse 80; Resp 18; Temp 98; Pulse Ox 100% on R/A; kj2 17:43 Body Mass Index 26.76 (79.83 kg, 172.72 cm) ld1 17:43 Pain Scale: Adult ld1 ED Course: 17:31 Patient arrived in ED. mr 17:32 Mike Santana PA is PHCP. cp 17:32 Juan Brannon MD is Attending Physician. cp 17:43 Arm band placed on right wrist. ld1 17:44 Triage completed. ld1 18:02 Abo/rh Typing Sent. kb4 18:02 Test, Urine Sent. kb4 18:02 CBC with Diff Sent. kb4 18:02 Basic Metabolic Panel Sent. kb4 18:02 Initial lab(s) drawn, by mn, sent to lab. Inserted saline lock: 20 gauge in right kb4 antecubital area, using aseptic technique. Blood collected. Flushed with 10 mL NS. 18:38 Roberat Duran, RN is Primary Nurse. ld1 18:56 Fatoumata Gonzalez, RN is Primary Nurse. kj2 19:03 Patient has correct armband on for positive identification. Provided Education on: call kj2 light. 19:04 No provider procedures requiring assistance completed. kj2 20:01 US Transvaginal Ob In Process Unspecified. EDMS 21:22 IV discontinued, intact, bleeding controlled, No redness/swelling at site. Pressure kj2 dressing applied. Administered Medications: 19:31 Drug: Acetaminophen PO 1000 mg PO once Route: PO; kj2 21:23 Follow up: Response: No adverse reaction kj2 19:32 Drug: NS 0.9% IV 1000 ml IV at 1000 ml once; to be given as a bolus over 60 minutes kj2 Route: IV; Rate: 1000 ml; Site: right antecubital; 21:23 Follow up: IV Status: Completed infusion; IV Intake: 1000ml kj2 Medication: 19:03 VIS not applicable for this client. kj2 Intake: 21:23 IV: 1000ml; Total: 1000ml. kj2 Outcome: 20:45 Discharge ordered by . cp 21:22 Discharged to home ambulatory, kj2 21:22 Condition: stable 21:22 Discharge instructions given to patient, family, Instructed on discharge instructions, follow up and referral plans. Demonstrated understanding of instructions, follow-up care, 21:36 Patient left the ED. kj2 Signatures: Dispatcher [employer] EDMS Kita Mcgee, Reg Reg mr Mike Santana, NESSA PA Roberta Cerda RN RN ld1 Fatoumata Gonzalez RN RN kj2 Moraima Karimi kb4
--- NOTE | 2024-12-02 20:46 | EDPHYS ---
Physician Documentation [facility] Name: Glory Gomes Age: 24 yrs Sex: Female : 2000 Arrival Date: 12/02/2024 Time: 17:29 Bed 14 Private MD: ED Physician Juan Brannon HPI: 12/02 18:00 This 24 yrs old Female presents to ER via Ambulatory with complaints of , cp Abdominal Pain. 18:00 The patient presents to the emergency department with abdominal pain, of the right cp lower quadrant, that started today, described as crampy. The estimated gestational age is 4 weeks. Previous pregnancies: the patient has never been . Associated signs and symptoms: Pertinent negatives: diarrhea, dysuria, fever, ruptured membranes, vaginal discharge, vomiting, vaginal bleeding. 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 - Infectious Disease History:: Denies. - Social history:: Smoking status: Patient denies any tobacco usage or history of. ROS: 18:05 Abdomen/GI: Positive for abdominal pain, of the right lower abdomen and adnexal, cp Negative for vomiting, diarrhea, constipation, 18:05 Constitutional: Negative for body aches, chills, fever, poor PO intake, cp 18:05 Respiratory: Negative for cough, shortness of breath, wheezing, 18:05 : Negative for urinary symptoms, hematuria, vaginal bleeding, vaginal discharge, 18:05 All other systems are negative, cp Exam: 18:10 Constitutional: The patient appears in no acute distress, alert, awake, comfortable, cp non-toxic, well developed, well nourished, 18:10 Head/Face: Normocephalic, atraumatic. cp 18:10 Eyes: Periorbital structures: appear normal, Conjunctiva: normal, no exudate, no injection, Lids and lashes: appear normal, bilaterally, 18:10 ENT: External ear(s): are unremarkable, Nose: is normal, Mouth: Lips: moist, Oral mucosa: moist, Posterior pharynx: Airway: no evidence of obstruction, patent, 18:10 Chest/axilla: Inspection: normal, 18:10 Cardiovascular: Rate: normal, Rhythm: regular, 18:10 Respiratory: the patient does not display signs of respiratory distress, Respirations: normal, no use of accessory muscles, no retractions, labored breathing, is not present, Breath sounds: are clear throughout, no decreased breath sounds, no stridor, no wheezing, 18:10 Abdomen/GI: Inspection: abdomen appears normal, Palpation: soft, in all quadrants, mild abdominal tenderness, in the right lower quadrant, Vital Signs: 17:43 BP 129 / 70; Pulse 88; Resp 18; Temp 98.2(TE); Pulse Ox 99% on R/A; Weight 79.83 kg; ld1 Height 5 ft. 8 in. ; Pain 6/10; 19:01 BP 123 / 66; Pulse 86; Resp 20; Pulse Ox 100% on R/A; kj2 20:02 BP 119 / 69; Pulse 86; Resp 20; Pulse Ox 100% ; kj2 21:23 BP 121 / 68; Pulse 80; Resp 18; Temp 98; Pulse Ox 100% on R/A; kj2 17:43 Body Mass Index 26.76 (79.83 kg, 172.72 cm) ld1 17:43 Pain Scale: Adult ld1 MDM: 17:56 Medical Screening Exam initiated cp 19:00 Differential diagnosis: STD, ectopic . cp 20:45 Data reviewed: vital signs, nurses notes, lab test result(s), radiologic studies, ultrasound, and as a result, I will discharge patient. 12/02 17:48 Order name: Abo/rh Typing; Complete Time: 19:33 [facility] 12/02 17:48 Order name: Basic Metabolic Panel; Complete Time: 19:33 [facility] 12/02 19:33 Interpretation: Normal except: CL 108; GFR 87. 12/02 17:48 Order name: CBC with Diff; Complete Time: 18:16 [facility] 12/02 19:33 Interpretation: Normal except: HGB 11.8; HCT 35.7; MCH 26.5. 12/02 17:48 Order name: Test, Urine; Complete Time: 18:16 [facility] 12/02 20:33 Interpretation: Reviewed. cp 12/02 18:17 Order name: Quantitative Hcg; Complete Time: 19:33 cp 12/02 19:33 Interpretation: Reviewed. cp 12/02 18:17 Order name: US Transvaginal Ob; Complete Time: 20:43 cp 12/02 20:43 Interpretation: Report reviewed. cp 12/02 17:48 Order name: IV Saline Lock; Complete Time: 18:01 ld1 12/02 17:48 Order name: Labs collected and sent; Complete Time: 18:02 ld1 12/02 17:48 Order name: NPO; Complete Time: 18:02 ld1 Administered Medications: 19:31 Drug: Acetaminophen PO 1000 mg PO once Route: PO; kj2 21:23 Follow up: Response: No adverse reaction kj2 19:32 Drug: NS 0.9% IV 1000 ml IV at 1000 ml once; to be given as a bolus over 60 minutes kj2 Route: IV; Rate: 1000 ml; Site: right antecubital; 21:23 Follow up: IV Status: Completed infusion; IV Intake: 1000ml kj2 Disposition: 12/03 20:31 Chart complete. cp Disposition Summary: 12/02/24 20:45 Discharge Ordered Notes: Location: Home cp Problem: new cp Symptoms: have improved cp Condition: Stable cp Diagnosis - Lower abdominal pain, unspecified cp - Other specified related conditions, first trimester cp Followup: cp - With: Private Physician - When: 1 week - Reason: Recheck today's complaints Discharge Instructions: - Discharge Summary Sheet cp - Abdominal Pain During cp - How A Baby Grows During cp - and Vaccinations cp - Subchorionic Hematoma cp - First Trimester of cp - Activity Restriction During cp - Managing Stress During cp - Exercise During cp Forms: - Medication Reconciliation Form cp - Antibiotic Education cp - Prescription Opioid Use cp - Patient Portal Instructions cp - Leadership Thank You Letter cp Signatures: Dispatcher [employer] EDMS Mike Santana PA PA cp Roberta Duran RN RN ld1 Fatoumata Gonzalez RN RN kj2 Corrections: (The following items were deleted from the chart) 12/02 17:49 17:49 ABO/RH TYPING+BB.LAB.BRZ ordered. EDMS EDMS 17:49 17:49 BASIC METABOLIC PANEL+C.LAB.BRZ ordered. EDMS EDMS 17:49 17:49 CBC+H.LAB.BRZ ordered. EDMS EDMS :49 17:49 Test, Urine+UC.LAB.BRZ ordered. EDMS EDMS
[2024-12-02 21:57] VITALS: O2SAT 100
[2024-12-02 22:01] VITALS: BP 121/68; TEMP 98
== END 2024-12-02 21:36 | disposition home or self-care (01) ==
LOC: ER 17:29
DX: O26.891 Other specified pregnancy related conditions, first trimester (principal); R10.31 Right lower quadrant pain; Z3A.01 Less than 8 weeks gestation of pregnancy
CPT/HCPCS: 96361; 85025; 80048; 36415; 86900; 81025; 86901; 84702; 76817; 96360; 99284; J7030